=== PATIENT | male | born 1995 | race Caucasian/White ===

== ENCOUNTER 2019-08-20 12:09 | Emergency (ER) | payer SELFPAY ==
[~2019-08-20] VITALS: Ht 177.8 cm; Wt 104.3 kg
[~2019-08-20 12:09] MED LIST: EFFEXOR-XR75 MG PO; SER25 PO; SEROQUEL50 M1 PO
[2019-08-20 12:20] VITALS: Ht 177.8 cm; Wt 104.3 kg
[2019-08-20 13:53] VITALS: BP 131/94
== END 2019-08-20 13:53 | disposition home or self-care (01) ==
LOC: ED 12:09
DX: Z13.89 Encounter for screening for other disorder (principal)